=== PATIENT | male | born 1975 | race Caucasian/White ===

== ENCOUNTER 2017-09-13 12:06 | Emergency (ER) | payer OTHER ==
[~2017-09-13] VITALS: Ht 177.8 cm; Wt 81.6 kg
--- NOTE | 2017-09-13 12:26 | ED Chest Pain ---
General Stated Complaint: SHARP PAIN IN R ARM,FEELING LIKE PASSING OUT Source: patient, family Exam Limitations: no limitations History of Present Illness Date Seen by Provider: Sep 13, 2017 Time Seen by Provider: 12:21 Initial Comments This 41-year-old white male presents with sharp pain in his right arm and began paroxysmally this morning. The patient's right arm pain suddenly radiated into his central chest. He has had associated nausea without vomiting and racing of his heart. The patient has had panic attacks in the past with somewhat similar symptoms. The patient denies documented heart disease. The patient's pain is described as sharp in nature and severe in quality. It is without associated diaphoresis or shortness of breath. Patient drank a 12 pack last night. Patient is a smoker. He denies use of recreational drugs. The episodes of arm and chest pain last for several minutes and then spontaneously resolve. At this time he is pain-free in the emergency department. Allergies and Home Medications Allergies Coded Allergies: No Known Drug Allergies (Unverified , 09/13/17) Home Medications No Active Prescriptions or Reported Meds Patient Home Medication List Home Medication List Reviewed: Yes Review of Systems Constitutional: No chills, No fever; malaise, weakness EENTM: No Symptoms Reported Respiratory: Denies Cough, Denies Shortness of Air Cardiovascular: See HPI, Chest Pain; Denies Irregular Heart Rate; Palpitations Gastrointestinal: Denies Abdominal Pain; Nausea; Denies Vomiting Genitourinary: No Symptoms Reported Musculoskeletal: see HPI, joint pain (right shoulder) Skin: No rash Psychiatric/Neurological: Anxiety, Other (panic attacks) Endocrine: No Symptoms Reported Hematologic/Lymphatic: No Symptoms Reported Past Srnuurm-Vmfdgm-Ijyewy Hx Patient Social History Recent Foreign Travel: No Contact w/Someone Who Travel: No Physical Exam Vital Signs Vital Signs - First Documented 09/13/17 09/13/17 12:27 13:02 Temp 96.7 Pulse 121 Resp 18 B/P (MAP) 157/90 (112) Pulse Ox 98 O2 Delivery Nasal Cannula O2 Flow Rate 2.00 Capillary Refill : General Appearance: WD/WN, Anxious HEENT: PERRL/EOMI, Normal ENT Inspection Neck: Normal Inspection Respiratory: Lungs Clear, Normal Breath Sounds, No Accessory Muscle Use Cardiovascular: Regular Rate, Rhythm, No Murmur Gastrointestinal: Normal Bowel Sounds, No Organomegaly, No Pulsatile Mass, Non Tender, Soft Extremity: Normal Inspection, Normal Range of Motion Neurologic/Psychiatric: Alert, Oriented x3, No Motor/Sensory Deficits, Normal Mood/Affect Skin: Normal Color, Warm/Dry Progress/Results/Core Measures Lab Results Laboratory Tests Test 09/13/17 12:22 Range/Units White Blood Count 7.0 4.3-11.0 10^3/uL Red Blood Count 5.54 4.35-5.85 10^6/uL Hemoglobin 17.7 13.3-17.7 G/DL Hematocrit 48 40-54 % Mean Corpuscular Volume 86 80-99 FL Mean Corpuscular Hemoglobin 32 25-34 PG Mean Corpuscular Hemoglobin Concent 37 H 32-36 G/DL Red Cell Distribution Width 13.6 10.0-14.5 % Platelet Count 255 130-400 10^3/uL Mean Platelet Volume 10.3 7.4-10.4 FL Neutrophils (%) (Auto) 63 42-75 % Lymphocytes (%) (Auto) 25 12-44 % Monocytes (%) (Auto) 9 0-12 % Eosinophils (%) (Auto) 3 0-10 % Basophils (%) (Auto) 1 0-10 % Neutrophils # (Auto) 4.3 1.8-7.8 X 10^3 Lymphocytes # (Auto) 1.7 1.0-4.0 X 10^3 Monocytes # (Auto) 0.6 0.0-1.0 X 10^3 Eosinophils # (Auto) 0.2 0.0-0.3 10^3/uL Basophils # (Auto) 0.1 0.0-0.1 10^3/uL Prothrombin Time 12.0 L 12.2-14.7 SEC INR Comment 0.9 0.8-1.4 Sodium Level 140 135-145 MMOL/L Potassium Level 3.8 3.6-5.0 MMOL/L Chloride Level 106 98-107 MMOL/L Carbon Dioxide Level 22 21-32 MMOL/L Anion Gap 12 5-14 MMOL/L Blood Urea Nitrogen 5 L 7-18 MG/DL Creatinine 0.99 0.60-1.30 MG/DL Estimat Glomerular Filtration Rate > 60 BUN/Creatinine Ratio 5 Glucose Level 113 H 70-105 MG/DL Calcium Level 9.2 8.5-10.1 MG/DL Magnesium Level 2.4 1.8-2.4 MG/DL Total Bilirubin 0.7 0.1-1.0 MG/DL Aspartate Amino Transf (AST/SGOT) 19 5-34 U/L Alanine Aminotransferase (ALT/SGPT) 22 0-55 U/L Alkaline Phosphatase 69 40-136 U/L Troponin I < 0.30 <0.30 NG/ML Total Protein 7.4 6.4-8.2 GM/DL Albumin 4.9 H 3.2-4.5 GM/DL My Orders Orders - DORY, SHAVONNE Camacho MD Cbc With Automated Diff (09/13/17 12:17) Magnesium (09/13/17 12:17) Chest 1 View, Ap/Pa Only (09/13/17 12:17) Ekg Tracing (09/13/17 12:17) Cardiac Profile 1 (09/13/17 12:17) Comprehensive Metabolic Panel (09/13/17 12:17) Protime With Inr (09/13/17 12:17) O2 (09/13/17 12:17) Monitor-Rhythm Ecg Trace Only (09/13/17 12:17) Aspirin Chewable Tablet (Baby Aspirin Ch (09/13/17 12:30) Nitroglycerin 0.4 Mg Btl 25's (Nitrostat (09/13/17 12:30) Saline Lock/Iv-Start (09/13/17 12:17) Ns Iv 1000 Ml (Sodium Chloride 0.9%) (09/13/17 12:30) Lorazepam Injection (Ativan Injection) (09/13/17 12:45) Medications Given in ED Current Medications Medications Dose Ordered Sig/Leroy Route Start Time Stop Time Status Last Admin Dose Admin Aspirin 324 mg ONCE ONCE PO 09/13/17 12:30 09/13/17 12:31 DC 09/13/17 12:52 324 MG Lorazepam 2 mg ONCE ONCE IVP 09/13/17 12:45 09/13/17 12:46 DC 09/13/17 12:52 2 MG Nitroglycerin 0.4 mg UD PRN SL 09/13/17 12:30 09/13/17 12:52 0.4 MG Vital Signs/I&O 09/13/17 09/13/17 12:27 13:02 Temp 96.7 Pulse 121 Resp 18 B/P (MAP) 157/90 (112) Pulse Ox 98 97 O2 Delivery Nasal Cannula O2 Flow Rate 2.00 Progress Note : Time: 13:16 Progress Note Patient's EKG demonstrated a sinus tachycardia at 114. This spontaneously abated while in the emergency department. Patient's chest x-ray and laboratory evaluation including CMP, CBC, and troponin were all normal. The patient received 2 mg of Ativan IV. Patient's anxiety and other symptoms resolved. We discussed close follow-up with [facility] on Friday. I prescribed propranolol and Ativan over the weekend. I invited the patient is to return if the patient had any further problems or questions. Departure Impression Primary Impression: Heart palpitations Additional Impression: Anxiety Disposition: 01 HOME, SELF-CARE Condition: Improved Departure-Patient Inst. Decision time for Depature: 13:18 Referrals: ERICKA REYES DO (PCP/Family) Primary Care Physician Patient Instructions: Anxiety, Adult (DC) Add. Discharge Instructions: Propranolol and Ativan as prescribed. Follow up with [facility] on Friday. Return if any problems or questions. Scripts No Active Prescriptions or Reported Meds SHAVONNE CONNORS MD Sep 13, 2017 12:26
[2017-09-13] MEDS ORDERED: ASPIRIN 81 MG CHEW (CHILDREN'S ASA) PO ONE (12:30)
[2017-09-13] MEDS ORDERED: NITROGLYCERIN 0.4 MG SL TABS BTL 25'S SL PRN (12:30)
[2017-09-13] MEDS ORDERED: NS IV 1000 ML 1,000 ML IV SCH (12:30)
[2017-09-13 12:35] LABS: BASOPHILS # (AUTO) 0.1 10^3/uL (0.0-0.1); BASOPHILS % (AUTO) 1 % (0-10); EOSINOPHILS # (AUTO) 0.2 10^3/uL (0.0-0.3); EOSINOPHILS % (AUTO) 3 % (0-10); HEMATOCRIT 48 % (40-54); HEMOGLOBIN 17.7 G/DL (13.3-17.7); LYMPHOCYTES # (AUTO) 1.7 X 10^3 (1.0-4.0); LYMPHOCYTES % (AUTO) 25 % (12-44); MEAN CORPUSCULAR HEMOGLOBIN 32 PG (25-34); MEAN CORPUSCULAR HGB CONC 37 G/DL (32-36); MEAN CORPUSCULAR VOLUME 86 FL (80-99); MEAN PLATELET VOLUME 10.3 FL (7.4-10.4); MONOCYTES # (AUTO) 0.6 X 10^3 (0.0-1.0); MONOCYTES % (AUTO) 9 % (0-12); NEUTROPHILS # (AUTO) 4.3 X 10^3 (1.8-7.8); NEUTROPHILS % (AUTO) 63 % (42-75); PLATELET COUNT 255 10^3/uL (130-400); RED BLOOD COUNT 5.54 10^6/uL (4.35-5.85); RED CELL DISTRIBUTION WIDTH 13.6 % (10.0-14.5)
[2017-09-13 12:45] LABS: INR 0.9 (0.8-1.4)
[2017-09-13] MEDS ORDERED: LORazepam INJ 2 MG/ML (ATIVAN) VIAL IVP ONE (12:45)
[2017-09-13 12:56] LABS: ALANINE AMINOTRANSFERASE 22 U/L (0-55); ALBUMIN 4.9 GM/DL (3.2-4.5); ALKALINE PHOSPHATASE 69 U/L (40-136); BILIRUBIN,TOTAL 0.7 MG/DL (0.1-1.0); BUN/CREATININE RATIO 5; CALCIUM 9.2 MG/DL (8.5-10.1); CARBON DIOXIDE 22 MMOL/L (21-32); CHLORIDE 106 MMOL/L (98-107); CREATININE SERUM 0.99 MG/DL (0.60-1.30); GFR ESTIMATED > 60; GLUCOSE 113 MG/DL (70-105); MAGNESIUM 2.4 MG/DL (1.8-2.4); POTASSIUM 3.8 MMOL/L (3.6-5.0); SODIUM 140 MMOL/L (135-145); TOTAL PROTEIN 7.4 GM/DL (6.4-8.2)
--- NOTE | 2017-09-13 13:30 | Diagnostic Imaging Report ---
EXAMINATION: Chest radiograph, portable AP view. DATE: 09/13/2017 at 1305 hrs. INDICATION: 41-year-old male, chest discomfort. COMPARISON: 07/10/2007. FINDINGS: Stable overall appearance of the cardiomediastinal silhouette. There is no identified pneumothorax. There is no identified pleural effusion. There is no identified focal airspace consolidation. IMPRESSION: No identified acute cardiopulmonary abnormality. Dictated by: Dictated on workstation # [id number]
[2017-09-13 13:51] VITALS: BP 130/95
== END 2017-09-13 13:51 | disposition home or self-care (01) ==
LOC: EDUNIT# 12:06 → ER 12:09
DX: R00.2 Palpitations (principal); F41.9 Anxiety disorder, unspecified; F17.200 Nicotine dependence, unspecified, uncomplicated
CPT/HCPCS: 36415; 71045; 80053; 83735; 84484; 85025; 85610; 93005; 93041; 96361; 96374